=== PATIENT | female | born 1995 | race Caucasian/White ===

== ENCOUNTER 2016-10-27 11:15 | Emergency (ER) | payer BC ==
[2016-10-27 11:43] VITALS: BP 132/82
--- NOTE | 2016-10-27 11:52 | UC ---
Shortness of Breath HPI - HPI Summary HPI Summary: CHEST CONGESTION / COUGH X 5 DAYS + FEVER, + CHILLS , NASAL CONGESTION , PND - History of Current Complaint Chief Complaint: UCRespiratory Stated Complaint: COUGH,CONGESTION,ACHY Time Seen by Provider: 10/27/16 11:45 Hx Obtained From: Patient Hx Last Menstrual Period: ~09/28/16 Onset/Duration: Gradual Onset, Lasting Days - 5, Still Present Timing: Constant Current Severity: Moderate Aggrevating Factors: Movement, Deep Breaths Alleviating Factors: Nothing Associated Signs & Symptoms: Positive: Cough (Nonproductive), Wheezing, Fever, Chills, Nasal Congestion - Allergy/Home Medications Allergies/Adverse Reactions: Allergies Allergy/AdvReac Type Severity Reaction Status Date / Time Acetaminophen Allergy Rash Verified 10/27/16 11:37 Home Medications: Home Medications Previfem Control 1 tab PO DAILY 10/27/16 [History] PMH/Surg Hx/FS Hx/Imm Hx Previously Healthy: Yes Cardiovascular History Of: Denies: Hypertension Respiratory History Of: Denies: Asthma - Surgical History Surgical History: Yes Surgery Procedure, Year, and Place: T&A - Family History Known Family History: Positive: Diabetes - Social History Alcohol Use: Occasionally Substance Use Type: None Smoking Status (MU): Former Smoker Have You Smoked in the Last Year: Yes - rare in the last 4 months - Immunization History Most Recent Influenza Vaccination: August 2016 Review of Systems Constitutional: Negative Skin: Negative Eyes: Negative ENT: Nasal Discharge Respiratory: Cough Cardiovascular: Negative Gastrointestinal: Negative Genitourinary: Negative Motor: Negative All Other Systems Reviewed And Are Negative: Yes Physical Exam Triage Information Reviewed: Yes Appearance: Well-Appearing, No Pain Distress, Obese Vital Signs: Initial Vital Signs Temp 99.7 F 10/27/16 11:34 Pulse 110 10/27/16 11:34 Resp 18 10/27/16 11:34 BP 132/82 10/27/16 11:34 Pulse Ox 99 10/27/16 11:34 Vital Signs Reviewed: Yes Eyes: Positive: Conjunctiva Clear ENT: Positive: Normal ENT inspection, Hearing grossly normal, Pharynx normal, Nasal congestion, Nasal drainage, TMs normal. Negative: Pharyngeal erythema Neck exam: Normal Neck: Positive: Supple, Nontender, No Lymphadenopathy Respiratory: Positive: Chest non-tender, Lungs clear, Normal breath sounds Cardiovascular: Positive: RRR, No Murmur, Pulses Normal Abdomen Description: Positive: Nontender, Soft Skin Exam: Normal Shortness of Breath Dx - Differential Dx/Diagnosis Provider Diagnoses: BRONCHITIS Discharge - Discharge Plan Condition: Stable Disposition: HOME Prescriptions: Azithromycin TAB* [Zithromax TAB (Z-CRESCENCIO) 250 mg #6 tabs] 2 tab PO .TODAY, THEN 1 DAILY #1 crescencio Patient Education Materials: Acute Bronchitis (ED) Referrals: MADELAINE Pool [Primary Care Provider] - If Needed
== END 2016-10-27 12:06 | disposition home or self-care (01) ==
LOC: UCCORT 11:15
DX: J40 Bronchitis, not specified as acute or chronic (principal); Z88.6 Allergy status to analgesic agent; Z87.891 Personal history of nicotine dependence
CPT/HCPCS: 99212; G0463

== ENCOUNTER 2017-05-09 09:52 | Emergency (ER) | payer BC ==
[2017-05-09 10:16] VITALS: BP 131/73
--- NOTE | 2017-05-09 10:29 | UC ---
Head Injury HPI - HPI Summary HPI Summary: head injury 2 days ago was seen at [facility] ed , Dx with mild concussion , doing well now and feels 100 % better requesting a return back to work note - History Of Current Complaint Chief Complaint: UCHeadInjury Stated Complaint: RECHECK HEAD INJURY Time Seen by Provider: 05/09/17 10:13 Hx Obtained From: Patient Hx Last Menstrual Period: 04/21/17 Onset/Duration: Sudden Onset, Lasting Days - 2, Resolved Severity Currently: Moderate Severity Initially: Mild Character: Other - none now Aggravating Factor(s): Nothing Alleviating Factor(s): Nothing Associated Signs And Symptoms: Positive: Negative. Negative: Confusion, Memory Loss, Seizure, Epistaxis, Dental Malocclusion, Neck Pain, Nausea, Vomiting - Allergies/Home Medications Allergies/Adverse Reactions: Allergies Allergy/AdvReac Type Severity Reaction Status Date / Time Acetaminophen Allergy Rash Verified 05/09/17 10:16 Home Medications: Home Medications Citalopram TAB* [CeleXA TAB*] 20 mg PO DAILY 05/09/17 [History Confirmed ] hydrOXYzine HCL TAB* [Atarax 25 MG TAB*] 12.5 mg PO BID 05/09/17 [History Confirmed 05/09/17] hydrOXYzine HCL TAB* [Atarax 25 MG TAB*] 25 mg PO Q4H PRN 05/09/17 [History Confirmed 05/09/17] PMH/Surg Hx/FS Hx/Imm Hx Psychological History: Anxiety, Depression - Surgical History Surgical History: Yes Surgery Procedure, Year, and Place: T&A - Family History Known Family History: Positive: Diabetes - Social History Alcohol Use: Occasionally Substance Use Type: None Smoking Status (MU): Current Some Day Smoker Have You Smoked in the Last Year: Yes - rare in the last 4 months - Immunization History Most Recent Influenza Vaccination: August 2016 Review of Systems Constitutional: Negative Skin: Negative Eyes: Negative ENT: Negative Respiratory: Negative Cardiovascular: Negative Neurovascular: Negative All Other Systems Reviewed And Are Negative: Yes Physical Exam Triage Information Reviewed: Yes Appearance: Well-Appearing, No Pain Distress, Well-Nourished Vital Signs: Initial Vital Signs Temp 99.5 F 05/09/17 09:58 Pulse 80 05/09/17 09:58 Resp 20 05/09/17 09:58 BP 131/73 05/09/17 09:58 Vital Signs Reviewed: Yes Eyes: Positive: Conjunctiva Clear ENT: Positive: Normal ENT inspection, Hearing grossly normal, Pharynx normal Neck: Positive: Supple, Nontender, No Lymphadenopathy Respiratory: Positive: Chest non-tender, Lungs clear, Normal breath sounds Cardiovascular: Positive: RRR, No Murmur, Pulses Normal Neurological: Positive: Alert, Muscle Tone Normal Skin Exam: Normal UC Physical Exam Vital Signs On Initial Exam: Initial Vitals Temp Pulse Resp BP 99.5 F 80 20 131/73 05/09/17 09:58 05/09/17 09:58 05/09/17 09:58 05/09/17 09:58 - Neurological Exam Neurological: Normal, Sensory/Motor Intact, Alert, Oriented to Person Place, Time, CN Intact II-III, Reflexes Intact, Normal Gait, Speech Normal Head Injury Course/Dx - Differential Dx/Diagnosis Provider Diagnoses: head injury Discharge - Discharge Plan Condition: Stable Disposition: HOME Patient Education Materials: Head Injury (ED) Forms: *Work Release Referrals: MADELAINE Pool [Primary Care Provider] - If Needed
== END 2017-05-09 10:36 | disposition home or self-care (01) ==
LOC: UCCORT 09:52
DX: S09.90XD Unspecified injury of head, subsequent encounter (principal); X58.XXXD Exposure to other specified factors, subsequent encounter; Z88.6 Allergy status to analgesic agent; F41.9 Anxiety disorder, unspecified; F32.9 Major depressive disorder, single episode, unspecified; Z72.0 Tobacco use
CPT/HCPCS: 99211; G0463

== ENCOUNTER 2017-08-31 09:49 | Emergency (ER) | payer BC, OTHER ==
[2017-08-31 12:09] VITALS: BP 104/66
--- NOTE | 2017-08-31 12:44 | UC ---
Hand/Wrist HPI - HPI Summary HPI Summary: INTERMITTENT BILATERAL WRIST PAIN SWELLING, WELL INTERMITTENT NUMBNESS AND TINGLING IN FINGERS (THUMB, INDEX, MIDDLE). WORSE IN RIGHT WRIST OVER LEFT. NO KNOWN TRAUMA. HAS BEEN GOING ON FOR A MONTH, BEGAN ONE WEEK AFTER NEW EMPLOYMENT. - History Of Current Complaint Chief Complaint: UCUpperExtremity Stated Complaint: RIGHT HAND PAIN/NUMBNESS Time Seen by Provider: 08/31/17 10:39 Hx Obtained From: Patient, Family/Senior Publications Specialist Hx Last Menstrual Period: 08/29/17 Onset/Duration: Gradual Onset, Lasting Weeks, Still Present Severity Initially: Mild Severity Currently: Moderate Pain Intensity: 0 Pain Scale Used: 0-10 Numeric Character Of Pain: Dull, Aching, Throbbing Aggravating Factor(s): Movement, Lifting, Flexion, Extension Alleviating Factor(s): Rest Associated Signs And Symptoms: Positive: Swelling, Numbness/Tingling Related History: Dominant Hand Right - Risk Factors Compartment Syndrome Risk Factors: Paresthesias - Allergies/Home Medications Allergies/Adverse Reactions: Allergies Allergy/AdvReac Type Severity Reaction Status Date / Time Acetaminophen Allergy Rash Verified 08/31/17 10:07 Home Medications: Home Medications Cholecalciferol TAB* [Vitamin D TAB*] 400 unit PO DAILY 08/31/17 [History Confirmed 08/31/17] buPROPion SR TAB* [Wellbutrin SR TAB*] 100 mg PO DAILY 08/31/17 [History Confirmed 08/31/17] PMH/Surg Hx/FS Hx/Imm Hx Previously Healthy: Yes - Surgical History Surgical History: Yes Surgery Procedure, Year, and Place: T&A - Family History Known Family History: Positive: Diabetes - Social History Occupation: Employed Full-time Lives: With Family Alcohol Use: Occasionally Substance Use Type: None Smoking Status (MU): Current Some Day Smoker Have You Smoked in the Last Year: Yes - rare in the last 4 months - Immunization History Most Recent Influenza Vaccination: Not the 2017/2017 Season Review of Systems Constitutional: Negative Skin: Negative Eyes: Negative ENT: Negative Respiratory: Negative Cardiovascular: Negative Gastrointestinal: Negative Genitourinary: Negative Motor: Negative Neurovascular: Negative Musculoskeletal: Arthralgia, Myalgia Neurological: Paresthesia - NOT OCCURING PRESENTLY Psychological: Negative Is Patient Immunocompromised?: No All Other Systems Reviewed And Are Negative: Yes Physical Exam Triage Information Reviewed: Yes Appearance: Well-Appearing, No Pain Distress, Well-Nourished Vital Signs: Initial Vital Signs Temp 98.6 F 08/31/17 10:05 Pulse 82 08/31/17 10:05 Resp 16 08/31/17 10:05 BP 112/79 08/31/17 10:05 Pulse Ox 100 08/31/17 10:05 Vital Signs Reviewed: Yes Eye Exam: Normal ENT Exam: Normal ENT: Positive: Normal ENT inspection, Hearing grossly normal, Pharynx normal, TM dull Dental Exam: Normal Neck exam: Normal Neck: Positive: Supple, Nontender, No Lymphadenopathy Respiratory Exam: Normal Respiratory: Positive: Chest non-tender, Lungs clear, Normal breath sounds, No respiratory distress, No accessory muscle use Cardiovascular Exam: Normal Cardiovascular: Positive: RRR, No Murmur, Pulses Normal, Brisk Capillary Refill Abdominal Exam: Normal Musculoskeletal: Positive: Strength Intact, No Edema, Strength Limited @ - PAIN WITH FLEXION Neurological Exam: Normal Psychological Exam: Normal Skin Exam: Normal Hand/Wrist Course/Dx - Differential Dx/Diagnosis Differential Diagnosis/HQI/PQRI: Carpal Tunnel Syndrome, Sprain, Strain, Tendonitis, Tenosynovitis Provider Diagnoses: BILATERAL WRIST STRAIN Discharge - Discharge Plan Condition: Stable Disposition: HOME Patient Education Materials: Wrist Injury (ED), Paresthesia (ED) Forms: *Work Release Referrals: Rylan Hays MD [Medical Doctor] - MADELAINE Pool [Primary Care Provider] -
--- NOTE | 2017-08-31 19:48 | RAD ---
INDICATION: Overuse injury. Right elbow pain COMPARISON: None TECHNIQUE: AP, lateral, and oblique views were obtained. FINDINGS: The bony structures, joint spaces, and soft tissues are normal for age. IMPRESSION: NEGATIVE EXAMINATION.
--- NOTE | 2017-08-31 19:49 | RAD ---
INDICATION: Right wrist pain swelling and tingling. TECHNIQUE: 3 views of the right wrist were obtained. FINDINGS: The bones are in normal alignment. No fracture is seen. Joint spaces appear maintained. IMPRESSION: NO EVIDENCE FOR FRACTURE.
== END 2017-08-31 12:09 | disposition home or self-care (01) ==
LOC: UCCORT 09:49
DX: S66.911A Strain of unspecified muscle, fascia and tendon at wrist and hand level, right hand, initial encounter (principal); S66.912A Strain of unspecified muscle, fascia and tendon at wrist and hand level, left hand, initial encounter; X58.XXXA Exposure to other specified factors, initial encounter; Y92.9 Unspecified place or not applicable
CPT/HCPCS: 99213; G0463

== ENCOUNTER 2017-09-05 08:41 | Emergency (ER) | payer OTHER ==
[2017-09-05 09:10] VITALS: BP 120/72
[2017-09-05] MEDS ORDERED: Ibuprofen TAB* 600 MG PO ONE (09:40)
--- NOTE | 2017-09-05 10:29 | RAD ---
INDICATION: Right knee injury COMPARISON: None TECHNIQUE: AP, lateral, tunnel, and sunrise views were obtained. FINDINGS: The bony structures, joint spaces, and soft tissues are normal for age. IMPRESSION: NEGATIVE EXAMINATION.
--- NOTE | 2017-09-05 10:52 | UC ---
Knee Pain HPI - HPI Summary HPI Summary: Pleasant 21 yo female c/o R knee pain s/p fall at work yesterday. She was lifting packages from palates, tripped over palate, and landed on her R knee. c /o immediate pain. Weight bearing possible but very painful. No other pain c/ o. No neck pain. No distal or prox leg pain c/o. No calf swelling. No p/d/ w. - History of Current Complaint Chief Complaint: UCTrauma Stated Complaint: RT KNEE PAIN-WC Time Seen by Provider: 09/05/17 09:33 Hx Obtained From: Patient Hx Last Menstrual Period: 08/31/2017 - Allergies/Home Medications Allergies/Adverse Reactions: Allergies Allergy/AdvReac Type Severity Reaction Status Date / Time Acetaminophen Allergy Rash Verified 09/05/17 09:10 PMH/Surg Hx/FS Hx/Imm Hx Previously Healthy: Yes - Surgical History Surgical History: Yes Surgery Procedure, Year, and Place: T&A - Family History Known Family History: Positive: Diabetes - Social History Alcohol Use: Occasionally Substance Use Type: None Smoking Status (MU): Current Some Day Smoker Have You Smoked in the Last Year: Yes - rare in the last 4 months - Immunization History Most Recent Influenza Vaccination: Not the 2016/2017 Season Review of Systems Constitutional: Negative Skin: Negative Eyes: Negative ENT: Negative Respiratory: Negative Cardiovascular: Negative Gastrointestinal: Negative Genitourinary: Negative Motor: Other - see hpi Neurovascular: Other - see hpi Neurological: Other - see hpi Psychological: Negative Is Patient Immunocompromised?: No All Other Systems Reviewed And Are Negative: Yes Physical Exam Triage Information Reviewed: Yes Appearance: Well-Nourished - sitting up conversing easily and appropriately Vital Signs: Initial Vital Signs Temp 98.0 F 09/05/17 09:05 Pulse 88 09/05/17 09:05 Resp 18 09/05/17 09:05 BP 120/72 09/05/17 09:05 Pulse Ox 99 09/05/17 09:05 Vital Signs Reviewed: Yes Eye Exam: Normal ENT Exam: Normal - grossly normal Neck exam: Normal - no c/o pain Respiratory Exam: Normal - no tachypnea, no dyspnea Cardiovascular Exam: Normal - normal hr, good dp / pt. foot warm to touch. good cap refill. nondiaphoretic Abdominal Exam: Normal - no c/o pain Musculoskeletal Exam: Other - R ant knee with scattered echymoses. + swelling. Tender ant patella, also lat patella, and sup patella tender. No point fluctuance. Neurological Exam: Normal - nonfocal. distal sens LT present. Psychological Exam: Normal - conversing easily and appropriately Skin Exam: Normal - see henrique anderson re knee Knee Pain Course/Dx - Course Course Of Treatment: No new problems in CCC. Reviewed xray report with pt. D/ w pt tx plan / coa. Questions as posed answered to the best of my ability. Recommend f/u orthopedic surgeon. No work at least 2 weeks, unless otherwise modified or otherwise advised by your doctor. Declines analgesia script. - Differential Dx/Diagnosis Provider Diagnoses: R knee contusion. R knee sprain Discharge - Discharge Plan Condition: Stable Disposition: HOME Patient Education Materials: Knee Sprain (ED), Crutch Instructions (ED), Contusion in Adults (ED), Knee Pain (ED) Forms: *Work Release Referrals: MADELAINE EllsworthJhony [Primary Care Provider] - Filiberto Rivera MD [Medical Doctor] - Additional Instructions: Crutches MUCH POSSIBLE. Follow up orthopedic physician with one week. Seek medical attention for worse or new problems in the meantime. Ibuprofen per packaging instructions as needed for pain / inflammation. Elevate leg as much as possible when not standing / walking. Avoid tobacco.
== END 2017-09-05 11:19 | disposition home or self-care (01) ==
LOC: UCCORT 08:41
DX: S80.01XA Contusion of right knee, initial encounter (principal); S83.91XA Sprain of unspecified site of right knee, initial encounter; W01.0XXA Fall on same level from slipping, tripping and stumbling without subsequent striking against object, initial encounter; Y93.89 Activity, other specified; Y92.9 Unspecified place or not applicable; Y99.0 Civilian activity done for income or pay; Z88.6 Allergy status to analgesic agent; Z72.0 Tobacco use
CPT/HCPCS: 99213; A9270-GY; G0463

== ENCOUNTER 2018-08-11 20:17 | Emergency (ER) | payer SELFPAY ==
[2018-08-11 20:33] VITALS: BP 136/75
--- NOTE | 2018-08-11 20:38 | UC ---
Abdominal Pain Female HPI - HPI Summary HPI Summary: 22yo with history of bipolar disorder who was lifting logs 2 days ago and began noticing some pain around umbilicus that feels like a muscle sprain. The pain comes and goes and is position dependant with tenderness worsened when sitting, standing or when someone is lying on top of her. LMD 08-02-18. States she has been constipated for thepast two days , denies nausea or vomiting. Denies chills /fever. Currently she does not have it. - History of Current Complaint Stated Complaint: PAIN NEAR UMBILICUS X 1 WK Time Seen by Provider: 08/11/18 20:30 Hx Obtained From: Patient Hx Last Menstrual Period: 08/31/2017 Onset/Duration: Sudden Onset, Lasting Days Severity Initially: Mild Severity Currently: Mild Character: Sharp Aggravating Factor(s): Nothing Alleviating Factor(s): Position Associated Signs and Symptoms: Positive: Negative - Risk Factors Ectopic Risk Factor: Negative Allergies/Adverse Reactions: Allergies Allergy/AdvReac Type Severity Reaction Status Date / Time acetaminophen Allergy Rash Verified 08/11/18 20:29 MS Acetaminophen Allergy Rash Verified 09/05/17 09:10 [Acetaminophen] Home Medications: Home Medications Ibuprofen 800 mg PO ONCE 08/11/18 [History Confirmed 08/11/18] Lurasidone(*) [Latuda] 40 mg PO DAILY 08/11/18 [History Confirmed 08/11/18] Oxycodone HCl/Acetaminophen [Percocet 2.5-325 mg (NF)] 1 tab PO Q8H PRN [History Confirmed 08/11/18] PMH/Surg Hx/FS Hx/Imm Hx Psychological History: Bipolar Disorder - Surgical History Surgical History: Yes Surgery Procedure, Year, and Place: T&A - Family History Known Family History: Positive: Hypertension, Diabetes - Social History Alcohol Use: Occasionally Substance Use Type: None Smoking Status (MU): Current Some Day Smoker Have You Smoked in the Last Year: Yes - rare in the last 4 months - Immunization History Most Recent Influenza Vaccination: Not the 2016/2017 Season Review of Systems All Other Systems Reviewed And Are Negative: Yes Gastrointestinal: Positive: Abdominal Pain Physical Exam Triage Information Reviewed: Yes Eyes: Positive: Conjunctiva Clear ENT: Positive: Hearing grossly normal, Pharynx normal Neck: Positive: Supple, Nontender Respiratory: Positive: Chest non-tender, Lungs clear, Normal breath sounds, No respiratory distress Cardiovascular: Positive: RRR, No Murmur, Pulses Normal, Brisk Capillary Refill Abdomen Description: Positive: Nontender, No Organomegaly, Soft, Other: - no hernias Bowel Sounds: Positive: Present Musculoskeletal: Positive: Strength Intact, ROM Intact, No Edema Neurological: Positive: Alert, Muscle Tone Normal Psychological: Positive: Normal Response To Family, Age Appropriate Behavior Skin Exam: Normal Abd Pain Female Course/Dx - Course Course Of Treatment: patient with history of lifting heavy weights, hx of morbid obesity. Muscle sprain, start tizanidine as needed. Use miralax for constipation. f/u with PCP in 1 week - Differential Dx/Diagnosis Provider Diagnoses: muscle sprain. constipation Discharge - Sign-Out/Discharge Documenting (check all that apply): Patient Departure All imaging exams completed and their final reports reviewed: No Studies - Discharge Plan Condition: Stable Disposition: HOME Prescriptions: Polyethylene Glycol 3350* [Miralax*] 17 gm PO DAILY PRN #10 packet PRN Reason: Constipation tiZANidine TAB* [Zanaflex TAB*] 2 mg PO TID PRN #20 tab PRN Reason: Pain Patient Education Materials: Constipation (ED), Musculoskeletal Pain (ED) Referrals: Lawrence Olivera MD [Primary Care Provider] - - Billing Disposition and Condition Condition: STABLE Disposition: Home
== END 2018-08-11 21:03 | disposition home or self-care (01) ==
LOC: UCCORT 20:17
DX: S39.011A Strain of muscle, fascia and tendon of abdomen, initial encounter (principal); X50.0XXA Overexertion from strenuous movement or load, initial encounter; Y92.9 Unspecified place or not applicable; F31.9 Bipolar disorder, unspecified; F17.210 Nicotine dependence, cigarettes, uncomplicated; Z88.8 Allergy status to other drugs, medicaments and biological substances; K59.00 Constipation, unspecified
CPT/HCPCS: 99212; G0463

== ENCOUNTER 2019-07-02 08:50 | Emergency (ER) | payer BC, OTHER ==
[2019-07-02 09:21] VITALS: BP 130/75
--- NOTE | 2019-07-02 09:35 | UC ---
Ear Complaint HPI - HPI Summary HPI Summary: right ear pain x 1 days pain is sharp , 6 out of 10 worse with touching her ear and lying on her ear no cold symptoms , no fever, no chills - History of Current Complaint Chief Complaint: UCEar Stated Complaint: RIGHT EAR Time Seen by Provider: 07/02/19 09:21 Hx Obtained From: Patient Hx Last Menstrual Period: 08/31/2017 ?: No Onset/Duration: Gradual Onset, Lasting Days - 1, Still Present Severity Initially: Moderate Severity Currently: Moderate Pain Intensity: 0 Aggravating Factors: Other - touch Alleviating Factors: Nothing Associated Signs/Symptoms: Negative: Discharge, Hearing Loss, Foreign Body Sensation, Trauma to Ear, Swelling @, URI Symptoms - Allergies/Home Medications Allergies/Adverse Reactions: Allergies Allergy/AdvReac Type Severity Reaction Status Date / Time acetaminophen Allergy Rash Verified 08/11/18 20:29 Home Medications: Home Medications Fluoxetine HCl [Prozac] 10 mg PO DAILY 07/02/19 [History Confirmed 07/02/19] hydrOXYzine HCL TAB* [Atarax 25 MG TAB*] 25 mg PO QID PRN 07/02/19 [History Confirmed 07/02/19] PMH/Surg Hx/FS Hx/Imm Hx - Additional Past Medical History Additional PMH: Anxiety, BPD, Depression, MH Hospitalization [ End ] Psychological History: Anxiety, Bipolar Disorder - Surgical History Surgical History: Yes Surgery Procedure, Year, and Place: T&A - Family History Known Family History: Positive: Hypertension, Diabetes - Social History Alcohol Use: Occasionally Substance Use Type: None Smoking Status (MU): Heavy Every Day Tobacco Smoker Have You Smoked in the Last Year: Yes - rare in the last 4 months - Immunization History Most Recent Influenza Vaccination: Not the Season Review of Systems All Other Systems Reviewed And Are Negative: Yes Constitutional: Positive: Negative Skin: Positive: Negative Eyes: Positive: Negative ENT: Positive: Ear Ache. Negative: Epistaxis, Dental Pain, Sore Throat, Nasal Discharge, Sinus Congestion, Sinus Pain/Tenderness Respiratory: Positive: Negative Cardiovascular: Positive: Negative Is Patient Immunocompromised?: No Physical Exam Triage Information Reviewed: Yes Appearance: Well-Appearing, No Pain Distress, Well-Nourished Vital Signs: Initial Vital Signs Temp 99.1 F 07/02/19 09:18 Pulse 78 10/01/19 09:18 Resp 20 07/02/19 09:18 BP 130/75 07/02/19 09:18 Pulse Ox 99 07/02/19 09:18 Vital Signs Reviewed: Yes Eye Exam: Normal Eyes: Positive: Conjunctiva Clear ENT: Positive: Normal ENT inspection, Hearing grossly normal, Pharynx normal, TMs normal. Negative: TM bulging, TM dull, TM red Neck: Positive: Supple, Nontender, No Lymphadenopathy Respiratory: Positive: Chest non-tender, Lungs clear, Normal breath sounds Cardiovascular: Positive: RRR, No Murmur, Pulses Normal Ear Complaint Course/Dx - Differential Dx/Diagnosis Provider Diagnosis: Otalgia of right ear Discharge ED - Sign-Out/Discharge Documenting (check all that apply): Patient Departure All imaging exams completed and their final reports reviewed: No Studies - Discharge Plan Condition: Stable Disposition: HOME Patient Education Materials: Earache (ED) Referrals: Lawrence Olivera MD [Primary Care Provider] - If Needed Additional Instructions: no ear infection noted on the exam - Billing Disposition and Condition Condition: STABLE Disposition: Home
== END 2019-07-02 09:39 | disposition home or self-care (01) ==
LOC: UCCORT 08:50
DX: H92.01 Otalgia, right ear (principal); F41.9 Anxiety disorder, unspecified; F32.9 Major depressive disorder, single episode, unspecified; F31.9 Bipolar disorder, unspecified; F17.290 Nicotine dependence, other tobacco product, uncomplicated; Z88.8 Allergy status to other drugs, medicaments and biological substances; Z79.899 Other long term (current) drug therapy
CPT/HCPCS: 99211; G0463